=== PATIENT | male | born 1940 | race Two or more races ===

== ENCOUNTER 2017-08-13 12:58 | Outpatient (CLI) | payer OTHER | END 2017-08-13 13:04 | disposition home or self-care (01) | LOC: LAB 12:58 | DX: Q25.43 Congenital aneurysm of aorta (principal) ==

== ENCOUNTER → 2017-08-17 | Outpatient (CLI) | payer OTHER | END | disposition home or self-care (01) | LOC: TOM 08:30 | DX: I71.2 Thoracic aortic aneurysm, without rupture (principal); K80.80 Other cholelithiasis without obstruction | CPT/HCPCS: 71275; Q9965 ==

== ENCOUNTER 2018-07-21 11:50 | Outpatient (CLI) | payer OTHER | END 2018-07-21 13:28 | disposition home or self-care (01) | LOC: RAD 501 11:50 | DX: R06.02 Shortness of breath (principal) ==